=== PATIENT | male | born 1945 | race Caucasian/White ===

== ENCOUNTER 2017-01-17 05:44 | Day surgery (SDC) | payer MEDICARE ==
[2017-01-09 16:31] LABS: BUN (BLOOD UREA NITROGEN) 26 MG/DL (6-23); CHLORIDE, SERUM 105 MMOL/L (96-112); CO2 (CARBON DIOXIDE) 28 MMOL/L (24-34); CREATININE 1.45 MG/DL (0.70-1.30); GFR AFRICAN AMERICAN 56 ML/MIN (>=60); GFR NON AFRICAN AMERICAN 48 ML/MIN (>=60); GLUCOSE, SERUM 263 MG/DL (60-99); POTASSIUM, SERUM 5.6 MMOL/L (3.5-5.3); SODIUM, SERUM 139 MMOL/L (135-148)
[2017-01-09 16:36] LABS: HEMATOCRIT 39.8 % (40.0-51.0); HEMOGLOBIN 13.1 g/dL (13.6-17.8)
[2017-01-10 22:42] LABS: ALBUMIN 3.8 G/DL (3.5-5.0); ALKALINE PHOSPHATASE 116 U/L (45-117); DIRECT BILIRUBIN 0.1 MG/DL (0.0-0.4); INDIRECT BILIRUBIN(NOT ORDER) 0.3 MG/DL (0.1-0.9); SGOT(AST) 16 U/L (5-40); SGPT(ALT) 18 U/L (5-65); TOTAL BILIRUBIN 0.4 MG/DL (0-1.2); TOTAL PROTEIN 8.3 G/DL (6.0-8.5)
--- NOTE | ~2017-01-17 | OP ---
Record Of Operation [facility] [address] [place] [address] NAME: MONICA RAYGOZA : 45 STATUS : REG [facility]#: [id number] AGE: 71 ADM/REG DATE : 01/17/17 MR#: [id number] REPORT SERV DATE: 01/17/17 DICTATED BY: HENRRY LEHMAN DATE: 01/17/17 REPORT STATUS : Draft TRANSCRIBED BY: MODL DATE: 01/17/17 DATE OF PROCEDURE: 01/17/2017 PROCEDURE: Microdirect laryngoscopy with removal of right true vocal cord lesion. PREOPERATIVE DIAGNOSIS: Right true vocal cord lesion. POSTOPERATIVE DIAGNOSIS: Right true vocal cord lesion. ANESTHESIA: General endotracheal. COMPLICATION: None. FINDINGS: The patient was taken to the OR, placed in supine position, and was anesthetized, prepped, and draped in standard fashion. Larynx was suspended with laryngoscope. 0 degree video telescope was used. The patient had an exophytic lesion involving his entire right true vocal cord extending into the anterior commissure and involvement to a very small degree of the anterior aspect of the left true vocal cord. This was biopsied and then debulked with a websphere architect blade. This was done under microscopic view. Hemostasis was achieved with topical adrenaline. 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 The patient was awakened, extubated, and taken to the recovery room in good condition. WILLIAM/ZULLY Henrry Lehman M.D. / [id number] CC: China Perez M.D.
[~2017-01-17 05:44] MED LIST: ALLEGRA180 PO; COZ50 PO; DIOV160 PO; GLUCXL5 PO; JANTOVEN1 MG PO; JANTOVEN7.5 MG PO; KLOR-CON M2020 MEQ PO; L80 PO; LEVEMIR SC; LIPITOR40 PO; LOP100 PO; NIASPAN500 PO; PLAVIX PO; PROTONIX PO; SPIRO50 PO
[2017-01-17 06:31] LABS: INTERNATIONAL NORMAL RATI 2.2 UNITS (-); PROTIME (NOT ORD) 24.1 SEC (12.0-14.5)
== END 2017-01-17 18:03 | disposition home or self-care (01) ==
LOC: SDC 05:44
PROVIDERS: Otolaryngology
PROC: 0CBT8ZX Excision of Right Vocal Cord, Via Natural or Artificial Opening Endoscopic, Diagnostic (ICD-10-PCS; principal; 2017-01-17 08:00)
DX: C32.9 Malignant neoplasm of larynx, unspecified (principal); I10 Essential (primary) hypertension; E11.9 Type 2 diabetes mellitus without complications; K74.60 Unspecified cirrhosis of liver; Z95.1 Presence of aortocoronary bypass graft; Z95.5 Presence of coronary angioplasty implant and graft; Z88.0 Allergy status to penicillin; Z88.6 Allergy status to analgesic agent; Z88.5 Allergy status to narcotic agent; Z88.1 Allergy status to other antibiotic agents; Z79.01 Long term (current) use of anticoagulants; Z79.02 Long term (current) use of antithrombotics/antiplatelets; Z79.4 Long term (current) use of insulin; Z79.899 Other long term (current) drug therapy
CPT/HCPCS: 80048; 80076; 82962; 84132; 85014; 85018; 85610; 88305; 88331; 93005; A9270-GY; J2405; J2710; J3010

== ENCOUNTER 2017-01-19 13:27 | Emergency (ER) | payer MEDICARE | END 2017-01-19 13:37 | disposition home or self-care (01) | LOC: ER 13:27 | PROC: 0T9B70Z Drainage of Bladder with Drainage Device, Via Natural or Artificial Opening (ICD-10-PCS; principal; 2017-01-19) | DX: R33.9 Retention of urine, unspecified (principal); Z88.0 Allergy status to penicillin; Z88.5 Allergy status to narcotic agent; Z88.6 Allergy status to analgesic agent; Z79.01 Long term (current) use of anticoagulants; Z79.899 Other long term (current) drug therapy | CPT/HCPCS: 99283 ==